=== PATIENT | female | born 1985 | race Caucasian/White ===

== ENCOUNTER 2018-04-03 19:02 | Emergency (ER) | payer MEDICAID ==
[~2018-04-03] VITALS: Ht 165.1 cm; Wt 78.0 kg
== END 2018-04-03 19:49 | disposition home or self-care (01) ==
LOC: FSED 19:02
DX: J01.00 Acute maxillary sinusitis, unspecified (principal); J01.10 Acute frontal sinusitis, unspecified; F17.210 Nicotine dependence, cigarettes, uncomplicated; K21.9 Gastro-esophageal reflux disease without esophagitis
CPT/HCPCS: 99283

== ENCOUNTER 2018-06-03 22:57 | Emergency (ER) | payer SELFPAY ==
[~2018-06-03] VITALS: Ht 165.1 cm; Wt 78.0 kg
[2018-06-04] MEDS ORDERED: LORAZEPAM 1 MG TAB PO ONE (00:15)
[2018-06-04] MEDS ORDERED: LORAZEPAM1 MG PO (00:39)
== END 2018-06-04 00:52 | disposition home or self-care (01) ==
LOC: FSED 22:57
DX: F41.1 Generalized anxiety disorder (principal); T50.5X5A Adverse effect of appetite depressants, initial encounter; T42.6X5A Adverse effect of other antiepileptic and sedative-hypnotic drugs, initial encounter; F17.210 Nicotine dependence, cigarettes, uncomplicated; Z88.8 Allergy status to other drugs, medicaments and biological substances
CPT/HCPCS: 99283